=== PATIENT | female | born 1955 | race African-American/Black ===

== ENCOUNTER 2019-10-08 09:56 | Emergency (ER) | payer OTHER ==
[~2019-10-08] VITALS: Ht 162.6 cm; Wt 57.0 kg
[2019-10-08 10:00] VITALS: BP 186/90
[2019-10-08] MEDS ORDERED: DOCUSATE SODIUM 283 MG/5 ML ENEMA. PR ONE (11:00)
[2019-10-08] MEDS ORDERED: MAGNESIUM CITRATE 296 ML SOLUTION. PO ONE (11:00)
[2019-10-08] MEDS ORDERED: POLY119P4 PO (13:16)
--- NOTE | 2019-10-08 13:16 | PHYS DOC ---
Past Medical History Past Medical History: Hypertension Past Surgical History: No Surgical History Smoking Status: Never Smoker Alcohol Use: None General Adult EDM: Chief Complaint: CONSTIPATION HPI: HPI: Patient is a 63 year old female who presents with constipation. She states she has been having problems for the last couple weeks. She was able to finally have a bowel movement last week but since that time has not been able to go. She states that she has had a manually disimpact herself. She is taken Dulcolax at home without relief. She has been increasing her fiber without relief. She has not tried anything else at home. She has rectal pain and pressure but denies any abdominal pain. She does not have any vomiting. Review of Systems: Review of Systems: General: Denies fever, chills, sweats, fatigue Eyes: Denies drainage, blurred vision, eye redness HENT: Denies rhinorrhea, sore throat, earache Respiratory: Denies cough, shortness of breath, wheezing Cardiac: Denies edema, palpitations, chest pain GI: Denies abdominal pain, Nausea, vomiting reports constipation MSK: Denies back pain, neck pain Skin: Denies rash, jaundice Neuro: Denies headache, dizziness Psychiatric: Denies SI/HI Heart Score: Risk Factors: Risk Factors: DM, Current or recent (<one month) smoker, HTN, HLP, family history of CAD, obesity. Risk Scores: Score 0 - 3: 2.5% MACE over next 6 weeks - Discharge Home Score 4 - 6: 20.3% MACE over next 6 weeks - Admit for Clinical Observation Score 7 - 10: 72.7% MACE over next 6 weeks - Early Invasive Strategies Current Medications: Current Medications Medications (Trade) Dose Ordered Sig/Ayala Start Time Stop Time Status Last Admin Dose Admin Docusate Sodium (Enemeez) 283 mg 1X ONCE 10/08/19 11:00 10/08/19 11:01 DC 10/08/19 10:56 283 MG Magnesium Citrate (Citroma) 296 ml 1X ONCE 10/08/19 11:00 10/08/19 11:01 DC 10/08/19 10:57 296 ML Allergies: Allergies: Allergies Coded Allergies Type Severity Reaction Last Updated Verified ampicillin Allergy Mild 10/08/19 Yes prochlorperazine Allergy Mild 10/08/19 Yes Physical Exam: PE: General: Awake, alert, NAD. Well Nourished, well hydrated. Cooperative HEENT: Atraumatic, EOMI, PERRL, airway patent, moist oral mucosa Neck: Supple, trachea midline Respiratory: CTA bilaterally, normal effort, no wheezing/crackles CV: RRR, no murmur, cap refill <2 GI: Soft, nondistended, nontender, no masses MSK: No obvious deformities Skin: Warm, dry, intact Neuro: A&O x3, speech NL, sensory and motor grossly intact, no focal deficits Psych: Normal affect, normal mood, not suicidal or homicidal Current Patient Data: Vital Signs: Vital Signs Date Time Temp Pulse Resp B/P (MAP) Pulse Ox O2 Delivery O2 Flow Rate FiO2 10/08/19 10:00 97.7 62 16 186/90 (122) 100 Room Air 97.7 EKG: EKG: [] Radiology/Procedures: Radiology/Procedures: [] Course & Med Decision Making: Course & Med Decision Making Pertinent Labs and Imaging studies reviewed. (See chart for details) Patient is a 63-year-old female who presents to the emergency room complaining of constipation. She is only tried Dulcolax at home. She will be given magnesium citrate and an enema. After enema patient is feeling much better and would like to go home. We will place her on MiraLAX for the next several days. Patient's test results and vitals while in the ED were fully reviewed and discussed with the patient. Patient is stable and at this time does not need admission to the hospital. We have discussed strict return precautions and the importance of following up with their Primary Care Physician. Patient stated understanding and was given an opportunity to ask any questions. Patient is in agreement with plan. Dick Disclaimer: Dick Disclaimer: This electronic medical record was generated, in whole or in part, using a voice recognition dictation system. Departure Departure Impression: Primary Impression: Constipation Disposition: HOME, SELF-CARE Condition: IMPROVED Referrals: UNKNOWN PCP NAME (PCP) Patient Instructions: Constipation, Adult, [id number] Scripts Polyethylene Glycol 3350 (MIRALAX) 119 Gm Powder 17 GM PO DAILY for constipation, #255 GM 0 Refills dissolve in water Prov: CRESENCIO MELO MD 10/08/19 Justicifation of Admission Dx: Justifications for Admission: Justification of Admission Dx: No CRESENCIO MELO MD Oct 08, 2019 13:16
== END 2019-10-08 13:20 | disposition home or self-care (01) ==
LOC: ER 09:56
DX: K59.00 Constipation, unspecified (principal); I10 Essential (primary) hypertension; Z88.1 Allergy status to other antibiotic agents; Z88.8 Allergy status to other drugs, medicaments and biological substances
CPT/HCPCS: 99284